=== PATIENT | male | born 1925 | race Caucasian/White ===

== ENCOUNTER → 2017-05-29 | Outpatient (CLI) | payer MEDICARE, OTHER ==
[~2017-05-29] MED LIST: ALBU90OI INH; ALBU90OI61 INH; AMOCLA875 PO; ASPI81CH PO; ASPI81EC PO; Augmentin 875-1 EACH PO; BIMA.03OPS OD; BIMA.03OPS OU; BUDE6HFA INH; CHOL10002 PO; CIPR500 PO; CLEARLAX119 GM; DILT120ERA PO; DORZOPSO; DORZOPSO BOTHEYES; Dilt-Xr120 MG PO; FINA5 PO; FISH1000 PO; FURO20 PO; GLUC500 PO; HYDCHL12.5 PO; Hydrocodone-Ap1 EA23 PO; IPRA.06NI; LEVSOD100 PO; LOSA50 PO; LOSHYD PO; LOSHYD100 PO; LUMIGAN2.5 ML BOTHEYES; MULVITMIND PO; NIAC500ER PO; NIACIN 1000 MG PO; Norco 5-325 Ta1 EACH PO; OMEP20ER PO; Omeprazole20 M1 PO; POLY17UD PO; Prednisone50 MG PO; TAMS.4ER PO; TERA1 PO; TIMO.25OPS BOTHEYES; TIMO.5OPS BOTHEYES; TIMO.5OPSO BOTHEYES; TIOT18; TIOT18 IH; TIOT18 INH; Ventolin/Prove6.7 GM INH; Ventolin5 MG/1 ML NEB; Vibramycin100 MG PO
== END | disposition home or self-care (01) ==
LOC: LAB SHORT 07:34 → PLD 07:34
DX: D48.5 Neoplasm of uncertain behavior of skin (principal)
CPT/HCPCS: 88305